=== PATIENT | male | born 1930 | race Caucasian/White ===

== ENCOUNTER 2019-06-08 17:28 | Inpatient (IN) | payer OTHER ==
[~2019-06-08] VITALS: Ht 180.3 cm; Wt 64.0 kg
[2019-06-08 17:31] VITALS: BP_SYST 158
[2019-06-08] MEDS ORDERED: NACL 0.9% 1,000 ML IV ONE (17:32)
[2019-06-08] MEDS ORDERED: ALBUTEROL SULFATE 0.083% 2.5 MG/3 ML VIAL.NEB INH ONE (17:45)
[2019-06-08] MEDS ORDERED: methylPREDNISolone SOD SUCC/PF 62.5 MG/ML VIAL IVP ONE (17:45)
[2019-06-08] MEDS ORDERED: IPRATROPIUM BROM 0.5 MG/2.5 ML VIAL.NEB (ATROVENT) INH ONE (17:45)
[2019-06-08 18:16] LABS: HEMOGLOBIN 14.4 g/dL (14.0-18.0); MEAN CORPUSCULAR HEMOGLOBIN 33 pg (27-31); WHITE BLOOD COUNT (AUTO) 4.4 K/uL (4.8-10.8)
[2019-06-08 18:29] LABS: BASOPHILS # (AUTO) 0.1 K/uL (0.0-0.2); BASOPHILS % (AUTO) 2.3 % (0.0-2.0); EOSINOPHILS # (AUTO) 0.1 K/uL (0.0-0.4); EOSINOPHILS % (AUTO) 1.2 % (0.0-4.0); HEMATOCRIT 43.4 % (36-54); LYMPHOCYTES # (AUTO) 0.8 K/uL (1.0-5.5); LYMPHOCYTES % (AUTO) 19.1 % (20.5-51.5); MEAN CORPUSCULAR HGB CONC 33 % (32-36); MEAN CORPUSCULAR VOLUME 101 fL (79.0-98.0); MONOCYTES # (AUTO) 0.5 K/uL (0.0-1.0); MONOCYTES % (AUTO) 12.3 % (1.7-9.3); NEUTROPHILS # (AUTO) 2.9 K/uL (1.8-7.7); NEUTROPHILS % (AUTO) 65.1 % (40.0-70.0); PLATELET COUNT (AUTO) 82 K/uL (130-430); RED BLOOD CELL COUNT(AUTO) 4.32 MIL/uL (4.2-6.2); RED CELL DISTRIBUTION WIDTH 15.6 % (9.0-15.0)
[2019-06-08 18:35] LABS: ANION GAP 6 (5-15); CALCIUM 9.8 mg/dL (8.4-11.0); CHLORIDE 101 mmol/L (98-107); CREATININE 1.49 mg/dL (0.55-1.30); GLUCOSE 101 mg/dL (70-99); POTASSIUM 3.9 mmol/L (3.5-5.1); SODIUM SERUM 138 mmol/L (136-145); UREA NITROGEN, BLOOD 20 mg/dL (8-21)
[2019-06-08 18:39] LABS: INR 1.3 (0.80-1.20); PROTHROMBIN TIME 12.5 SECS (9.5-12.5)
[2019-06-08 18:41] LABS: ALANINE AMINOTRANSFERASE 42 U/L (12-78); ALBUMIN 3.6 g/dL (3.4-4.8); AMYLASE 29 U/L (0-100); ASPARTATE AMINOTRANSFERASE 46 U/L (10-37); LIPASE 107 U/L (73-393); TOTAL BILIRUBIN 1.6 mg/dL (0.0-1.0)
[2019-06-08] MEDS ORDERED: CLOPIDOGREL BISULFATE 75 MG TABLET PO ONE (19:00)
[2019-06-08] MEDS ORDERED: ASPIRIN 81 MG TAB.CHEW PO ONE (19:00)
[2019-06-08 19:39] LABS: BILIRUBIN,URINE NEGATIVE (NEGATIVE); BLOOD, URINE 2+ (NEGATIVE); COLOR,URINE YELLOW (YELLOW); GLUCOSE,URINE NEGATIVE (NEGATIVE); KETONES,URINE NEGATIVE (NEGATIVE); LEUKOCYTE ESTERASE ,URINE NEGATIVE (NEGATIVE); NITRITE, URINE NEGATIVE (NEGATIVE); PH,URINE 6.5 (5.0-8.0); PROTEIN URINE TRACE (NEGATIVE)
[2019-06-08 19:49] LABS: CLARITY/URINE SLIGHTLY HAZY (CLEAR)
[2019-06-08 20:00] LABS: BACTERIA,URINE FEW /HPF (None Seen); RBC,URINE 50-80 /HPF (0-3); WBC,URINE 0-3 /HPF (0-3)
[2019-06-08] MEDS ORDERED: ONDANSETRON HCL 4 MG/2 ML VIAL IVP PRN (20:00)
[2019-06-08] MEDS ORDERED: POTASSIUM CHLORIDE 20 MEQ TAB.PRT.SR PO PRN (20:00)
[2019-06-08] MEDS ORDERED: ACETAMINOPHEN 325 MG TABLET PO PRN (20:00)
[2019-06-08] MEDS ORDERED: ZOLPIDEM TARTRATE 5 MG TABLET PO PRN (20:00)
[2019-06-08] MEDS ORDERED: MUPIROCIN 2% TOPICAL OINTMENT 22 GM NS PRN (20:00)
[2019-06-08] MEDS ORDERED: LORazepam 2 MG/ML VIAL IVP PRN (20:00)
[2019-06-08] MEDS ORDERED: MORPHINE 2 MG/ML INJ. SYRINGE IVP PRN ×2 (20:00)
[2019-06-08] MEDS ORDERED: DOCUSATE SODIUM 100 MG CAPSULE PO PRN (20:00)
[2019-06-08] MEDS ORDERED: MAGNESIUM SULFATE 50 ML IV PRN (20:00)
[2019-06-08 20:01] LABS: MUCUS,URINE None Seen /LPF (None Seen)
[2019-06-08 20:22] VITALS: BP_SYST 138
[2019-06-08] MEDS: NACL 0.9% 1,000 ML IV SCH (21:18)
[2019-06-09 04:34] VITALS: BP_SYST 141
[2019-06-09 07:36] LABS: ANION GAP 9 (5-15); CHLORIDE 103 mmol/L (98-107); CREATININE 1.13 mg/dL (0.55-1.30); GLUCOSE 129 mg/dL (70-99); POTASSIUM 3.7 mmol/L (3.5-5.1); SODIUM SERUM 139 mmol/L (136-145); UREA NITROGEN, BLOOD 19 mg/dL (8-21)
[2019-06-09] MEDS ORDERED: ALBUTEROL SULFATE 0.083% 2.5 MG/3 ML VIAL.NEB INH PRN (08:30)
[2019-06-09] MEDS: FUROSEMIDE 40 MG/4 ML VIAL IVP SCH (08:47)
[2019-06-09 08:53] LABS: BASOPHILS % (AUTO) 0.2 % (0.0-2.0); HEMATOCRIT 41.6 % (36-54); HEMOGLOBIN 13.5 g/dL (14.0-18.0); LYMPHOCYTES # (AUTO) 0.1 K/uL (1.0-5.5); MEAN CORPUSCULAR HEMOGLOBIN 33 pg (27-31); MEAN CORPUSCULAR HGB CONC 32 % (32-36); MEAN CORPUSCULAR VOLUME 101 fL (79.0-98.0); MONOCYTES % (AUTO) 2.2 % (1.7-9.3); NEUTROPHILS # (AUTO) 1.6 K/uL (1.8-7.7); PLATELET COUNT (AUTO) 68 K/uL (130-430); RED BLOOD CELL COUNT(AUTO) 4.13 MIL/uL (4.2-6.2); RED CELL DISTRIBUTION WIDTH 15.4 % (9.0-15.0)
[2019-06-09 08:57] LABS: WHITE BLOOD COUNT (AUTO) 1.8 K/uL (4.8-10.8)
[2019-06-09] MEDS ORDERED: PIPERACILLIN/TAZO 3.375/DEX-IS 50 ML IV ONE (09:00)
[2019-06-09] MEDS ORDERED: QUEtiapine FUMARATE 25 MG TABLET PO ONE (09:30)
[2019-06-09] MEDS ORDERED: DILT120C89 PO (10:24)
[2019-06-09] MEDS ORDERED: ROSU5TAB PO (10:24)
[2019-06-09] MEDS ORDERED: AMI200 PO (10:24)
[2019-06-09] MEDS ORDERED: ATORVASTATIN 20 MG TABLET PO ONE (11:00)
[2019-06-09] MEDS: ASPIRIN 81 MG TAB.CHEW PO SCH (11:24)
[2019-06-09 12:16] VITALS: BP_SYST 145
[2019-06-09 12:19] LABS: NEUTROPHILS % (AUTO) 89.6 % (40.0-70.0)
[2019-06-09] MEDS ORDERED: risperiDONE 1 MG TABLET (RisperDAL) PO ONE (15:45)
[2019-06-09 16:25] VITALS: BP_SYST 118
[2019-06-09] MEDS: PIPERACILLIN/TAZO 3.375/DEX-IS 50 ML IV SCH ×2 (17:44→23:21)
[2019-06-09 20:00] VITALS: BP_SYST 111
[2019-06-09] MEDS: NACL 0.9% 1,000 ML IV SCH (20:15)
[2019-06-09] MEDS: CARVEDILOL 6.25 MG TABLET (COREG) PO SCH (20:55)
[2019-06-09] MEDS: QUEtiapine FUMARATE 25 MG TABLET PO SCH (20:56)
[2019-06-10 00:25] VITALS: BP_SYST 149
[2019-06-10] MEDS: PIPERACILLIN/TAZO 3.375/DEX-IS 50 ML IV SCH ×3 (06:09→17:25)
[2019-06-10 06:17] LABS: BASOPHILS % (AUTO) 0.1 % (0.0-2.0); HEMATOCRIT 42.2 % (36-54); HEMOGLOBIN 13.8 g/dL (14.0-18.0); LYMPHOCYTES # (AUTO) 0.4 K/uL (1.0-5.5); LYMPHOCYTES % (AUTO) 6.6 % (20.5-51.5); MEAN CORPUSCULAR HEMOGLOBIN 33 pg (27-31); MEAN CORPUSCULAR HGB CONC 33 % (32-36); MEAN CORPUSCULAR VOLUME 101 fL (79.0-98.0); MONOCYTES # (AUTO) 0.7 K/uL (0.0-1.0); MONOCYTES % (AUTO) 10.2 % (1.7-9.3); NEUTROPHILS # (AUTO) 5.6 K/uL (1.8-7.7); NEUTROPHILS % (AUTO) 83.1 % (40.0-70.0); PLATELET COUNT (AUTO) 72 K/uL (130-430); RED CELL DISTRIBUTION WIDTH 15.7 % (9.0-15.0); WHITE BLOOD COUNT (AUTO) 6.7 K/uL (4.8-10.8)
[2019-06-10 07:13] LABS: ALANINE AMINOTRANSFERASE 35 U/L (12-78); ALBUMIN 3.5 g/dL (3.4-4.8); ANION GAP 11 (5-15); ASPARTATE AMINOTRANSFERASE 35 U/L (10-37); CALCIUM 9.2 mg/dL (8.4-11.0); CHLORIDE 98 mmol/L (98-107); CREATININE 1.44 mg/dL (0.55-1.30); GLUCOSE 114 mg/dL (70-99); LIPASE 171 U/L (73-393); POTASSIUM 3.4 mmol/L (3.5-5.1); SODIUM SERUM 136 mmol/L (136-145); THYROID STIMULATING HORMONE 2.44 uIu/mL (0.34-4.82); TOTAL BILIRUBIN 1.2 mg/dL (0.0-1.0); UREA NITROGEN, BLOOD 22 mg/dL (8-21)
[2019-06-10 08:00] VITALS: BP_SYST 138
[2019-06-10] MEDS: FUROSEMIDE 40 MG/4 ML VIAL IVP SCH (08:37)
[2019-06-10] MEDS: QUEtiapine FUMARATE 25 MG TABLET PO SCH ×2 (09:00→21:00)
[2019-06-10 12:00] VITALS: BP_SYST 134
[2019-06-10] MEDS: ATORVASTATIN 20 MG TABLET PO SCH (12:31)
[2019-06-10] MEDS: DILTIAZEM HCL 120 MG CAP.SR.24H PO SCH (12:31)
[2019-06-10] MEDS: ASPIRIN 81 MG TAB.CHEW PO SCH (12:31)
[2019-06-10] MEDS: CLOPIDOGREL BISULFATE 75 MG TABLET PO SCH (12:31)
[2019-06-10] MEDS: CARVEDILOL 6.25 MG TABLET (COREG) PO SCH ×2 (12:32→21:00)
[2019-06-10 12:36] VITALS: BP_SYST 133
[2019-06-10 13:09] LABS: BF APPEARANCE UNSPUN CLEAR (CLEAR); BODY FLUID COLOR YELLOW (LT YELLOW); BODY FLUID SOURCE/ TYPE PLEURAL; SOURCE/TYPE ,BODY FLUID PLEURAL
[2019-06-10 13:10] LABS: BODY FLUID TOTAL VOLUME 1050 mL; LYMPHOCYTES, BODY FLUID 90 %; NEUTROPHIL, BODY FLUID 10 %; RBC, BODY FLUID 10 /uL; WBC, BODY FLUID 46 /uL
[2019-06-10 17:10] VITALS: BP_SYST 115
[2019-06-10 17:36] LABS: BODY FLUID GLUCOSE 121 mg/dL; BODY FLUID TOTAL PROTEIN 1.6 g/dL
[2019-06-10 20:00] VITALS: BP_SYST 106
[2019-06-10] MEDS: NACL 0.9% 1,000 ML IV SCH (22:21)
[2019-06-11] MEDS: PIPERACILLIN/TAZO 3.375/DEX-IS 50 ML IV SCH ×4 (00:52→17:09)
[2019-06-11 00:54] VITALS: BP_SYST 118
[2019-06-11 06:17] LABS: ANION GAP 5 (5-15); CALCIUM 8.6 mg/dL (8.4-11.0); CHLORIDE 102 mmol/L (98-107); CREATININE 1.35 mg/dL (0.55-1.30); GLUCOSE 102 mg/dL (70-99); POTASSIUM 3.3 mmol/L (3.5-5.1); SODIUM SERUM 139 mmol/L (136-145); UREA NITROGEN, BLOOD 21 mg/dL (8-21)
[2019-06-11 06:22] LABS: BASOPHILS % (AUTO) 0.7 % (0.0-2.0); EOSINOPHILS # (AUTO) 0.1 K/uL (0.0-0.4); EOSINOPHILS % (AUTO) 1.4 % (0.0-4.0); HEMATOCRIT 38.7 % (36-54); HEMOGLOBIN 12.6 g/dL (14.0-18.0); LYMPHOCYTES # (AUTO) 0.5 K/uL (1.0-5.5); LYMPHOCYTES % (AUTO) 9.9 % (20.5-51.5); MEAN CORPUSCULAR HEMOGLOBIN 33 pg (27-31); MEAN CORPUSCULAR HGB CONC 33 % (32-36); MEAN CORPUSCULAR VOLUME 101 fL (79.0-98.0); MONOCYTES # (AUTO) 0.6 K/uL (0.0-1.0); MONOCYTES % (AUTO) 10.5 % (1.7-9.3); NEUTROPHILS # (AUTO) 4.2 K/uL (1.8-7.7); NEUTROPHILS % (AUTO) 77.5 % (40.0-70.0); RED BLOOD CELL COUNT(AUTO) 3.85 MIL/uL (4.2-6.2); RED CELL DISTRIBUTION WIDTH 15.6 % (9.0-15.0); WHITE BLOOD COUNT (AUTO) 5.4 K/uL (4.8-10.8)
[2019-06-11] MEDS ORDERED: ALBUTEROL SULFATE 0.083% 2.5 MG/3 ML VIAL.NEB INH PRN (07:45)
[2019-06-11 08:00] VITALS: BP_SYST 120
[2019-06-11] MEDS: ASPIRIN 81 MG TAB.CHEW PO SCH (08:41)
[2019-06-11] MEDS: FUROSEMIDE 40 MG/4 ML VIAL IVP SCH (08:41)
[2019-06-11] MEDS: CLOPIDOGREL BISULFATE 75 MG TABLET PO SCH (08:42)
[2019-06-11] MEDS: ATORVASTATIN 20 MG TABLET PO SCH (08:42)
[2019-06-11] MEDS: DILTIAZEM HCL 120 MG CAP.SR.24H PO SCH (08:42)
[2019-06-11] MEDS: CARVEDILOL 6.25 MG TABLET (COREG) PO SCH ×2 (08:43→20:40)
[2019-06-11] MEDS: QUEtiapine FUMARATE 25 MG TABLET PO SCH ×2 (09:00→20:41)
[2019-06-11 10:27] LABS: PLATELET COUNT (AUTO) 67 K/uL (130-430)
[2019-06-11 12:00] VITALS: BP_SYST 90
[2019-06-11 16:00] VITALS: BP_SYST 100
[2019-06-11 20:00] VITALS: BP_SYST 98
[2019-06-12] MEDS: PIPERACILLIN/TAZO 3.375/DEX-IS 50 ML IV SCH ×4 (00:24→17:49)
[2019-06-12 00:53] VITALS: BP_SYST 99
[2019-06-12 06:16] LABS: ANION GAP 3 (5-15); CALCIUM 8.5 mg/dL (8.4-11.0); CHLORIDE 100 mmol/L (98-107); CREATININE 1.34 mg/dL (0.55-1.30); GLUCOSE 103 mg/dL (70-99); POTASSIUM 3.7 mmol/L (3.5-5.1); SODIUM SERUM 134 mmol/L (136-145); UREA NITROGEN, BLOOD 22 mg/dL (8-21)
[2019-06-12 06:18] LABS: EOSINOPHILS # (AUTO) 0.2 K/uL (0.0-0.4); EOSINOPHILS % (AUTO) 4.3 % (0.0-4.0); HEMATOCRIT 37.9 % (36-54); HEMOGLOBIN 12.4 g/dL (14.0-18.0); LYMPHOCYTES # (AUTO) 0.6 K/uL (1.0-5.5); MEAN CORPUSCULAR HEMOGLOBIN 33 pg (27-31); MEAN CORPUSCULAR HGB CONC 33 % (32-36); MEAN CORPUSCULAR VOLUME 100 fL (79.0-98.0); MONOCYTES # (AUTO) 0.5 K/uL (0.0-1.0); MONOCYTES % (AUTO) 11.5 % (1.7-9.3); NEUTROPHILS # (AUTO) 3.2 K/uL (1.8-7.7); NEUTROPHILS % (AUTO) 70.2 % (40.0-70.0); PLATELET COUNT (AUTO) 69 K/uL (130-430); RED BLOOD CELL COUNT(AUTO) 3.77 MIL/uL (4.2-6.2); RED CELL DISTRIBUTION WIDTH 15.5 % (9.0-15.0); WHITE BLOOD COUNT (AUTO) 4.6 K/uL (4.8-10.8)
[2019-06-12 08:00] VITALS: BP_SYST 113
[2019-06-12] MEDS ORDERED: FUROSEMIDE 40 MG TABLET PO SCH (09:00)
[2019-06-12] MEDS: QUEtiapine FUMARATE 25 MG TABLET PO SCH (09:00)
[2019-06-12] MEDS: ATORVASTATIN 20 MG TABLET PO SCH (09:49)
[2019-06-12] MEDS: CLOPIDOGREL BISULFATE 75 MG TABLET PO SCH (09:49)
[2019-06-12] MEDS: CARVEDILOL 6.25 MG TABLET (COREG) PO SCH (09:49)
[2019-06-12] MEDS: DILTIAZEM HCL 120 MG CAP.SR.24H PO SCH (09:50)
[2019-06-12 12:50] VITALS: BP_SYST 110
[2019-06-12 16:29] VITALS: BP_SYST 94
[2019-06-12 18:26] VITALS: BP_SYST 96
[2019-06-12 20:00] VITALS: BP_SYST 103
== END 2019-06-12 20:10 | DRG 177 ==
LOC: SED 17:28 → SMU 19:09 → STU 20:17
PROVIDERS: ADMIT General Practice; ATTEND General Practice
PROC: 0W993ZZ Drainage of Right Pleural Cavity, Percutaneous Approach (ICD-10-PCS; principal; 2019-06-10)
DX: J69.0 Pneumonitis due to inhalation of food and vomit (principal); I21.A1 Myocardial infarction type 2; N17.0 Acute kidney failure with tubular necrosis; J96.01 Acute respiratory failure with hypoxia; I50.43 Acute on chronic combined systolic (congestive) and diastolic (congestive) heart failure; E87.2 Acidosis; G93.40 Encephalopathy, unspecified; I48.20 Chronic atrial fibrillation, unspecified; J91.8 Pleural effusion in other conditions classified elsewhere; D69.6 Thrombocytopenia, unspecified; D72.819 Decreased white blood cell count, unspecified; F03.90 Unspecified dementia, unspecified severity, without behavioral disturbance, psychotic disturbance, mood disturbance, and anxiety; I11.0 Hypertensive heart disease with heart failure; I25.10 Atherosclerotic heart disease of native coronary artery without angina pectoris; Z60.2 Problems related to living alone; I25.5 Ischemic cardiomyopathy; M19.90 Unspecified osteoarthritis, unspecified site; Z79.82 Long term (current) use of aspirin; Z86.79 Personal history of other diseases of the circulatory system; Z87.891 Personal history of nicotine dependence; Z95.0 Presence of cardiac pacemaker; Z95.1 Presence of aortocoronary bypass graft; Z82.49 Family history of ischemic heart disease and other diseases of the circulatory system; Z88.1 Allergy status to other antibiotic agents; Z88.8 Allergy status to other drugs, medicaments and biological substances
CPT/HCPCS: 32555; 36415; 36600; 70450-TC; 71045; 80048; 80053; 81000-TC; 82150-TC; 82550-TC; 82803-TC; 82947-TC; 83036; 83605; 83690-TC; 83735-TC; 83880; 84157-TC; 84443-TC; 84484; 85025; 85610-TC; 85730-TC; 86710; 87040-TC; 87070-TC; 87116; 88108; 88305; 89051-TC; 89060-TC; 92610-GN; 93005; 93306; 94640; 96361; 96374; 97110-GP; 97116-GP; 97530-GP; 99285; C1729; G0378; J1940; J2060; J2543; J2930; J7030; J7613